=== PATIENT | female | born 1975 | race Asian ===

== ENCOUNTER 2018-07-07 08:25 | Outpatient (CLI) | payer BC ==
--- NOTE | 2018-07-14 13:14 | MMO ---
Bilateral MAMMO Bilat Screen [facility]. CLINICAL HISTORY: Patient is 42 years old and is seen for screening. The patient has no family history of breast cancer. The patient has no personal history of cancer. The patient has a history of bilateral Stereotatic Biopsy at age 30 - benign and bilateral Stereotatic Biopsy at age 28 - benign. VIEWS: The views performed were: bilateral craniocaudal and bilateral mediolateral oblique. FILMS COMPARED: The present examination has been compared to prior imaging studies performed at [place] on 11/18/2008, 08/09/2010 and 01/04/2011. This study has been interpreted with the assistance of computer-aided detection. MAMMOGRAM FINDINGS: The breasts are heterogeneously dense, which could obscure a lesion on mammography. Finding 1: There is a new oval mass measuring 10 millimeters seen in the upper-outer region of the right breast. Finding 2: There is a new focal asymmetry seen in the posterior inner region of the left breast. Finding 3: There are stable biopsy clips seen in both breasts. IMPRESSION: FINDING 1: NEW MASS IN THE RIGHT BREAST REQUIRES ADDITIONAL EVALUATION. ADDITIONAL PROJECTIONS (RIGHT CRANIOCAUDAL SPOT COMPRESSION WITH TOMOSYNTHESIS; RIGHT MEDIOLATERAL OBLIQUE SPOT COMPRESSION WITH TOMOSYNTHESIS; AND RIGHT MEDIOLATERAL WITH TOMOSYNTHESIS) ARE RECOMMENDED. AN ULTRASOUND EXAM IS RECOMMENDED IF NEEDED. FINDING 2: NEW FOCAL ASYMMETRY IN THE LEFT BREAST REQUIRES ADDITIONAL EVALUATION. ADDITIONAL PROJECTIONS (LEFT CRANIOCAUDAL SPOT COMPRESSION WITH TOMOSYNTHESIS AND LEFT MEDIOLATERAL WITH TOMOSYNTHESIS) ARE RECOMMENDED. ACR BI-RADS Category 0 - Incomplete: Need additional imaging evaluation. [facility] will notify the patient of the need for additional imaging services. MAMMOGRAPHY NOTE: 1. A negative mammogram report should not delay a biopsy if a dominant of clinically suspicious mass is present. 2. Approximately 10% to 15% of breast cancers are not detected by mammography. 3. Adenosis and dense breasts may obscure an underlying neoplasm.
== END 2018-07-07 08:26 | disposition home or self-care (01) ==
LOC: SCSMAMMO 08:25
PROVIDERS: ATTEND Family Medicine
DX: Z12.31 Encounter for screening mammogram for malignant neoplasm of breast (principal); N63.11 Unspecified lump in the right breast, upper outer quadrant; N64.89 Other specified disorders of breast
CPT/HCPCS: 77067

== ENCOUNTER 2018-07-21 08:51 | Outpatient (CLI) | payer BC ==
--- NOTE | 2018-07-21 10:18 | MMO ---
Bilateral Mammogram Diagnostic Additional Views Bilateral, Bilateral MAMMO Bilat Diag [facility]. CLINICAL HISTORY: Patient is 42 years old and is seen for additional evaluation requested from prior study. The patient has no family history of breast cancer. The patient has no personal history of cancer. The patient has a history of bilateral Stereotatic Biopsy at age 30 - benign and bilateral Stereotatic Biopsy at age 28 - benign. VIEWS: The views performed were: bilateral craniocaudal spot compression with tomosynthesis; bilateral mediolateral; and right mediolateral oblique spot compression with tomosynthesis. FILMS COMPARED: The present examination has been compared to prior imaging studies performed at [facility] on 07/07/2018, and at [facility] on 07/21/2018. MAMMOGRAM FINDINGS: The breasts are heterogeneously dense, which could obscure a lesion on mammography. Finding 1: There is an equal density, oval mass measuring 11 millimeters with circumscribed margins seen in the posterior upper-outer region of the right breast. A sonographic correlate was not definitely identified. Finding 2: There is an equal density, oval mass measuring 6 millimeters with circumscribed margins seen in the inner region of the left breast. This demonstrates probably benign sonographic characteristics. IMPRESSION: FINDING 1: MASS IN THE RIGHT BREAST IS PROBABLY BENIGN. FOLLOW-UP IN 6 MONTHS IS RECOMMENDED. FINDING 2: MASS IN THE LEFT BREAST IS PROBABLY BENIGN. FOLLOW-UP IN 6 MONTHS IS RECOMMENDED. THE RESULTS OF THIS EXAM WERE SENT TO THE PATIENT. ACR BI-RADS Category 3 - Probably benign finding - short interval follow-up suggested. [facility] will notify the patient of the need for additional imaging services. MAMMOGRAPHY NOTE: 1. A negative mammogram report should not delay a biopsy if a dominant of clinically suspicious mass is present. 2. Approximately 10% to 15% of breast cancers are not detected by mammography. 3. Adenosis and dense breasts may obscure an underlying neoplasm.
--- NOTE | 2018-07-21 10:45 | ULT ---
LIMITED RIGHT BREAST ULTRASOUND: DATE: 07/21/2018. PROVIDED CLINICAL HISTORY: Abnormal mammogram. FINDINGS: Limited sonographic interrogation of the right breast was performed for evaluation of nodular mass in the upper outer right breast seen mammographically. Mammographic abnormality measures about 11 mm. No sonographic abnormality of corresponding size is seen. There are oval hypoechoic solid-appearing nodules at the 9 and 10 o'clock positions measuring about 7 and 6 mm respectively. IMPRESSION: 1. No sonographic correlate for the mammographic abnormality is demonstrated. Recommend 6-month fol lowup right-sided diagnostic mammogram for the mammographically apparent mass. 2. Circumscribed masses in the right breast seen sonographically but not mammographically, demonstra ting features typical for fibroadenomas. Six-month followup right-sided ultrasound is recommended fo r these nodules. 3. BIRADS category 3 - probably benign findings. Short-term followup recommended. POS: OFF
--- NOTE | 2018-07-21 11:19 | ULT ---
LIMITED LEFT BREAST ULTRASOUND: Date: 07-21-18 Provided Clinical History: Abnormal mammogram. FINDINGS: Limited sonographic interrogation was performed of the left breast in the region of mammographic conc jean. There is a 6 mm circumscribed oval hypoechoic nodule having features typical for fibroadenoma an d appearing similar to lesions present in the right breast at the 10 o'clock position. A simple cyst is seen at the 4 o'clock position measuring about 1.6 cm. IMPRESSION: BIRADS category 3 - probably benign findings. 6-month follow up left breast ultrasound is recommended for the lesion at the 10 o'clock position. POS: OFF
== END 2018-07-21 08:52 | disposition home or self-care (01) ==
LOC: BICMAMMO 08:51
PROVIDERS: ATTEND Family Medicine
DX: R92.2 Inconclusive mammogram (principal); N63.10 Unspecified lump in the right breast, unspecified quadrant; N63.20 Unspecified lump in the left breast, unspecified quadrant
CPT/HCPCS: 77066; G0279

== ENCOUNTER 2020-06-26 08:40 | Outpatient (CLI) | payer BC | END 2020-06-26 08:41 | disposition home or self-care (01) | LOC: BICMAMMO 08:40 | PROVIDERS: ATTEND Family Medicine | DX: R92.8 Other abnormal and inconclusive findings on diagnostic imaging of breast (principal); N63.11 Unspecified lump in the right breast, upper outer quadrant; N63.21 Unspecified lump in the left breast, upper outer quadrant | CPT/HCPCS: 77066; G0279 ==

== ENCOUNTER 2021-01-15 09:09 | Outpatient (CLI) | payer BC | END 2021-01-15 09:10 | disposition home or self-care (01) | LOC: BICULT 09:09 | PROVIDERS: ATTEND Family Medicine | DX: N63.10 Unspecified lump in the right breast, unspecified quadrant (principal) ==